=== PATIENT | male | born 1950 | race Two or more races ===

== ENCOUNTER 2016-09-16 17:13 | Emergency (ER) | payer MEDICAID ==
[~2016-09-16] VITALS: Ht 165.1 cm; Wt 72.6 kg
[2016-09-17 01:57] LABS: Urine Bilirubin Negative (Negative); Urine Color Yellow (Yellow); Urine Glucose TRACE mg/dL (Normal); Urine Hyaline Cast MANY /lpf (0 - 2); Urine Ketone TRACE (Negative); Urine Mucus FEW (None Seen); Urine Nitrite Negative (Negative); Urine RBC 9 /hpf (0 - 3); Urine Sperm PRESENT /hpf (None Seen); Urine Urobilinogen Normal (Negative); Urine WBC Clumps PRESENT /hpf (None Seen); Urine pH 5.5 (5.0-8.0)
[2016-09-17 01:58] LABS: Urine Blood 1+ /uL (Negative)
[2016-09-17] MEDS ORDERED: CIPROFLOXACIN HCL 500 MG TAB PO ONE (02:15)
[2016-09-17 02:27] VITALS: BP 137/89
== END 2016-09-17 02:34 | disposition home or self-care (01) ==
LOC: ER 17:22
DX: N39.0 Urinary tract infection, site not specified (principal); E11.9 Type 2 diabetes mellitus without complications; I10 Essential (primary) hypertension
CPT/HCPCS: 81001

== ENCOUNTER 2019-10-12 19:04 | Emergency (ER) | payer MEDICARE, MEDICAID ==
[~2019-10-12] VITALS: Ht 167.6 cm; Wt 74.8 kg
[2019-10-12 21:38] LABS: Basophils # (auto) 0 10 ^3/uL (0-0.2); Basophils % (auto) 0.5 % (0.0-2.0); Eosinophils # (auto) 0.2 10 ^3/uL (0-0.8); Eosinophils % (auto) 2.5 % (0.0-7.0); Hematocrit 40.2 % (41.0-53.0); Hemoglobin 13.3 g/dL (13.5-17.5); Lymphocytes # (auto) 1.9 10 ^3/uL (0.4-5.4); Lymphocytes % (auto) 20.6 % (10.0-50.0); Mean Corpuscular Hemoglobin 29.1 pg (28.0-32.0); Monocytes # (auto) 0.6 10 ^3/uL (0-1.3); Monocytes % (auto) 6.8 % (0.0-12.0); Neutrophils # (auto) 6.6 10 ^3/uL (1.6-8.6); Neutrophils % (auto) 69.6 % (37.0-80.0); Platelet Count (auto) 229 10^3/uL (140-450); Red Blood Cells 4.57 10^6/uL (4.5-5.90); Red Cell Distribution Width 14.1 % (11.8-14.3); White Blood Cell 9.5 10^3/uL (4.4-10.8)
[2019-10-12 21:58] LABS: Albumin 4.2 g/dL (3.4-5.0); Calcium 9.2 mg/dL (8.5-10.1); Potassium 4.1 mmol/L (3.5-5.1)
[2019-10-12 22:00] LABS: BUN/Creatinine Ratio 17.6
[2019-10-12 22:11] LABS: Bilirubin, Total 0.4 mg/dL (0.2-1.0); Total Protein 8.1 g/dL (6.4-8.2)
[2019-10-12 22:46] VITALS: BP 149/89
== END 2019-10-12 23:27 | disposition home or self-care (01) ==
LOC: ER 19:04
DX: K59.01 Slow transit constipation (principal); E11.9 Type 2 diabetes mellitus without complications; I10 Essential (primary) hypertension
CPT/HCPCS: 36415; 74018; 80053; 83880; 85025

== ENCOUNTER 2021-01-05 16:08 | Inpatient (IN) | payer MEDICARE, MEDICAID ==
[~2021-01-05] VITALS: Ht 167.6 cm; Wt 69.1 kg
[2021-01-05] MEDS ORDERED: SODIUM CHLORIDE 0.9% 1,000 ML IVB ONE (16:45)
[2021-01-05] MEDS ORDERED: ONDANSETRON HCL 4 MG/2 ML VIAL IV ONE (16:45)
[2021-01-05 16:59] LABS: Basophils # (auto) 0.1 10 ^3/uL (0-0.2); Eosinophils # (auto) 0.3 10 ^3/uL (0-0.8); Eosinophils % (auto) 2.3 % (0.0-7.0); Hemoglobin 13.7 g/dL (13.5-17.5); Lymphocytes % (auto) 18.5 % (10.0-50.0); Mean Corpuscular Hemoglobin 30.3 pg (28.0-32.0); Mean Corpuscular Hgb Conc. 34.4 g/dL (32.0-36.0); Mean Corpuscular Volume 88.2 fL (80.0-100.0); Monocytes # (auto) 0.7 10 ^3/uL (0-1.3); Monocytes % (auto) 6.1 % (0.0-12.0); Neutrophils # (auto) 7.9 10 ^3/uL (1.6-8.6); Neutrophils % (auto) 72.1 % (37.0-80.0); Platelet Count (auto) 245 10^3/uL (140-450); Red Blood Cells 4.53 10^6/uL (4.5-5.90); Red Cell Distribution Width 13.9 % (11.8-14.3)
[2021-01-05 17:14] LABS: Albumin 3.8 g/dL (3.4-5.0); Amylase 157 U/L (25-115); Anion Gap 7 (5-15); Blood Urea Nitrogen 22 mg/dL (7-18); Calcium 8.9 mg/dL (8.5-10.1); Carbon Dioxide 25 mmol/L (21-32); Chloride 105 mmol/L (98-107); Glucose 110 mg/dL (74-106); Lipase 621 U/L (73-393); Magnesium 2.2 mg/dL (1.6-2.6); Potassium 4.2 mmol/L (3.5-5.1); Sodium 137 mmol/L (136-145)
[2021-01-05 17:21] LABS: Alanine Aminotransferase 35 U/L (16-61); Alkaline Phosphatase 105 U/L (45-117); Aspartate Aminotransferase 17 U/L (15-37); BUN/Creatinine Ratio 18.6; Bilirubin, Total 0.4 mg/dL (0.2-1.0); GFR African American 79 mL/min; GFR Non-African American 65 mL/min; Total Protein 8.1 g/dL (6.4-8.2)
[2021-01-05 18:19] LABS: INR 0.98 (0.9-1.15); Partial Thromboplastin Time 24.6 sec (23.0-31.2)
[2021-01-05] MEDS ORDERED: NITROGLYCERIN 0.4 MG SL TAB SL PRN (19:45)
[2021-01-05] MEDS ORDERED: LORazepam 2MG/ML-1ML VIAL IV PRN (19:45)
[2021-01-05] MEDS ORDERED: MORPHINE SULF INJ 2 MG/ML SYRINGE 1ML IV PRN ×2 (19:45)
[2021-01-05] MEDS ORDERED: ONDANSETRON HCL 4 MG/2 ML VIAL IV PRN (19:45)
[2021-01-05] MEDS: SODIUM CHLORIDE 0.9% 1,000 ML IV SCH (20:02)
[2021-01-05 20:57] LABS: Urine Bacteria NONE SEEN /hpf (None Seen); Urine Blood Negative /uL (Negative); Urine Mucus FEW (None Seen); Urine Specific Gravity 1.014 (1.001-1.035); Urine WBC 1 /hpf (0 - 3)
[2021-01-06] MEDS: hydrALAZINE HCL 20 MG/ML VL IV PRN ×3 (00:04→18:32)
[2021-01-06 03:11] VITALS: BP 160/74
[2021-01-06] MEDS ORDERED: GLIP10TA9 PO (03:29)
[2021-01-06] MEDS ORDERED: METO-159 PO (03:29)
[2021-01-06] MEDS ORDERED: POLYSOL2 EACHEYE (03:29)
[2021-01-06] MEDS ORDERED: METF-372 PO (03:29)
[2021-01-06] MEDS ORDERED: ATOR10TA52 PO (03:29)
[2021-01-06] MEDS ORDERED: LATA0.0019 EACHEYE (03:31)
[2021-01-06 05:00] VITALS: BP 156/77
[2021-01-06 06:36] LABS: Basophils # (auto) 0.1 10 ^3/uL (0-0.2); Basophils % (auto) 1.2 % (0.0-2.0); Eosinophils # (auto) 0.2 10 ^3/uL (0-0.8); Eosinophils % (auto) 2.6 % (0.0-7.0); Hematocrit 39.5 % (41.0-53.0); Lymphocytes # (auto) 1.5 10 ^3/uL (0.4-5.4); Lymphocytes % (auto) 16.9 % (10.0-50.0); Mean Corpuscular Hemoglobin 29.2 pg (28.0-32.0); Mean Corpuscular Hgb Conc. 32.8 g/dL (32.0-36.0); Mean Corpuscular Volume 88.9 fL (80.0-100.0); Monocytes # (auto) 0.5 10 ^3/uL (0-1.3); Neutrophils # (auto) 6.7 10 ^3/uL (1.6-8.6); Neutrophils % (auto) 73.3 % (37.0-80.0); Nucleated Red Blood Cells % 0.1 %; Platelet Count (auto) 224 10^3/uL (140-450); Red Blood Cells 4.44 10^6/uL (4.5-5.90); White Blood Cell 9.1 10^3/uL (4.4-10.8)
[2021-01-06 06:43] LABS: Potassium 3.8 mmol/L (3.5-5.1)
[2021-01-06 06:53] LABS: Albumin 3.2 g/dL (3.4-5.0); BUN/Creatinine Ratio 19.3; Bilirubin, Total 0.6 mg/dL (0.2-1.0); Calcium 8.3 mg/dL (8.5-10.1); Total Protein 6.9 g/dL (6.4-8.2)
[2021-01-06 09:00] VITALS: BP 129/60
[2021-01-06] MEDS: SODIUM CHLORIDE 0.9% 1,000 ML IV SCH ×2 (09:05→22:23)
[2021-01-06] MEDS ORDERED: PANTOPRAZOLE 40 MG/10 ML VIAL INJ IV SCH (10:00)
[2021-01-06 13:00] VITALS: BP 165/81
[2021-01-06 17:00] VITALS: BP 165/80
[2021-01-06] MEDS: ARTIFICIAL TEARS 15ml EACHEYE SCH ×2 (17:00→22:23)
[2021-01-06 22:00] VITALS: BP 153/80
[2021-01-06] MEDS ORDERED: ATORVASTATIN 20 MG TAB PO SCH (22:00)
[2021-01-06] MEDS ORDERED: LATANOPROST 0.005 % OPTH(EYE) SOL 2.5ML EACHEYE SCH (22:00)
[2021-01-06] MEDS: PANTOPRAZOLE 40 MG TAB PO SCH (22:24)
[2021-01-06] MEDS: METOPROLOL TARTRATE 50 MG TAB PO SCH (22:24)
[2021-01-07] MEDS: hydrALAZINE HCL 20 MG/ML VL IV PRN ×3 (00:13→13:14)
[2021-01-07 05:00] VITALS: BP 153/73
[2021-01-07 06:02] LABS: Basophils # (auto) 0.1 10 ^3/uL (0-0.2); Basophils % (auto) 0.9 % (0.0-2.0); Eosinophils # (auto) 0.1 10 ^3/uL (0-0.8); Hematocrit 39.5 % (41.0-53.0); Hemoglobin 13.5 g/dL (13.5-17.5); Lymphocytes # (auto) 1.5 10 ^3/uL (0.4-5.4); Lymphocytes % (auto) 13.1 % (10.0-50.0); Mean Corpuscular Hemoglobin 29.9 pg (28.0-32.0); Mean Corpuscular Hgb Conc. 34.2 g/dL (32.0-36.0); Mean Corpuscular Volume 87.6 fL (80.0-100.0); Monocytes # (auto) 0.7 10 ^3/uL (0-1.3); Monocytes % (auto) 5.9 % (0.0-12.0); Neutrophils # (auto) 9.2 10 ^3/uL (1.6-8.6); Neutrophils % (auto) 79.1 % (37.0-80.0); Platelet Count (auto) 237 10^3/uL (140-450); Red Blood Cells 4.51 10^6/uL (4.5-5.90); Red Cell Distribution Width 14.2 % (11.8-14.3); White Blood Cell 11.7 10^3/uL (4.4-10.8)
[2021-01-07 06:10] LABS: Albumin 3.4 g/dL (3.4-5.0); Calcium 8.6 mg/dL (8.5-10.1); Potassium 3.8 mmol/L (3.5-5.1)
[2021-01-07 06:13] LABS: BUN/Creatinine Ratio 12.9; Bilirubin, Total 0.7 mg/dL (0.2-1.0)
[2021-01-07] MEDS: ARTIFICIAL TEARS 15ml EACHEYE SCH ×2 (06:21→11:15)
[2021-01-07] MEDS ORDERED: glipiZIDE 5 MG TAB PO SCH (07:00)
[2021-01-07] MEDS: METOPROLOL TARTRATE 50 MG TAB PO SCH (07:59)
[2021-01-07] MEDS: PANTOPRAZOLE 40 MG TAB PO SCH (07:59)
[2021-01-07 09:00] VITALS: BP 143/66
[2021-01-07 13:00] VITALS: BP 160/73
[2021-01-08 13:29] LABS: Hepatitis B Surface Antibody Negative
[2021-01-08 15:54] LABS: Hepatitis A Total Antibody Positive
[2021-01-08 18:43] LABS: Hepatitis B Core Total AB Negative
[2021-01-08 18:44] LABS: Hepatitis B Surface Antigen Negative (Negative); Hepatitis C Antibody Negative (Negative)
== END 2021-01-07 16:20 | disposition home or self-care (01) | DRG 241 ==
LOC: ER 16:08 → TELE 19:36 → TELE-WESTW 23:37
PROVIDERS: ADMIT Family Medicine; ATTEND Family Medicine
DX: K29.00 Acute gastritis without bleeding (principal); N17.0 Acute kidney failure with tubular necrosis; K74.60 Unspecified cirrhosis of liver; E11.22 Type 2 diabetes mellitus with diabetic chronic kidney disease; E11.65 Type 2 diabetes mellitus with hyperglycemia; E78.5 Hyperlipidemia, unspecified; H40.9 Unspecified glaucoma; N18.9 Chronic kidney disease, unspecified; Z20.822 Contact with and (suspected) exposure to COVID-19; I10 Essential (primary) hypertension
CPT/HCPCS: 36415; 71045; 74176; 80053; 81001; 82150; 82962; 83036; 83690; 83735; 83880; 84443; 84484; 85025; 85610; 85730; 86704; 86706; 86708; 86803; 87340; 87426; 96374; C9113; G0378; J2405